=== PATIENT | male | born 1990 | race African-American/Black ===

== ENCOUNTER 2016-11-21 14:24 | Emergency (ER) | payer SELFPAY | END 2016-11-21 15:45 | disposition home or self-care (01) | LOC: D.ER 14:24 | DX: S93.402A Sprain of unspecified ligament of left ankle, initial encounter (principal); X58.XXXA Exposure to other specified factors, initial encounter; Y93.89 Activity, other specified; Y92.89 Other specified places as the place of occurrence of the external cause; J45.909 Unspecified asthma, uncomplicated; F17.200 Nicotine dependence, unspecified, uncomplicated ==

== ENCOUNTER 2019-12-13 20:36 | Inpatient (IN) | payer MEDICAID ==
[~2019-12-13] VITALS: Ht 185.4 cm; Wt 90.7 kg
--- NOTE | ~2019-12-13 | CN ---
PATIENT NAME:LEONARD PADILLA MEDICAL RECORD: [id number] : 89 LOCATION:[id number] ADMIT DATE: 12/14/19 ACCOUNT: [id number] CONSULTING PHYSICIAN: ENMANUEL MATHUR MD REFERRING PHYSICIAN: KD SALDIVAR MD DATE OF CONSULTATION: 12/16/2019 HISTORY OF PRESENT ILLNESS: Mr. Padilla is a 29-year-old male came in with a sore throat. On talking to him, he says his throat got sore 4 days ago and he has been in the hospital 2-3 days, so I came in immediately afterwards bad sore throat and it has not been getting better. Complains of difficulty swallowing. He has been on antibiotics, vancomycin and piperacillin I believe, but he did get a dose of steroids last night. His white count is 13,000. He is able to talk to me easily, he does not have any trismus, no distress. He is handling secretions well and seems okay to talk to, but he is just not getting a lot better and asked me to see him. On exam, he is healthy. He is alert. He is talkative, normal voice. No problem with his throat. Tongue protrudes in the midline. No trismus at all. Looking at his pharynx, he does have fullness in the right side. No peritonsillar cellulitis, but he does have fullness, it looks like he has got a tonsillitis, working on a right peritonsillar phlegmon, but not bad yet. Neck; he has got little jugulodigastric adenopathy on the right side, it is slightly tender, but his neck is not stiff or sore anything. His nose is normal. Eyes are normal. He did have a CT couple of days ago, I saw that and the report says some low density in the right tonsil region consistent with my exam. IMPRESSION: Tonsillitis with a right peritonsillar phlegmon. It is very early in his course. He started treatment pretty early. I think there is a good chance that this will calm down without intervention, but he is adamant that possibly developing a peritonsillar abscess timeframe, so I think he does need to be treated with steroids a little bit and he got a dose of last night, I am not sure if he got a dose of this morning, but just for about 24 hours a big dose of Decadron and I may just switch him to Rocephin and clindamycin. He is talking about potentially leaving AMA since he needs to go, but I told him that he may need an operation in a couple of days to drain the peritonsillar abscess if he does not improve. I think that there is a good chance with aggressive medical treatment he will improve, but he is not at that stage where he can go home yet, I do not think. I went over that with him, but with his white count, no trismus and looking at his pharynx, he does not have anything drainable at this point for sure. We will just have to see how he does over the next 24-48 hours. TRANSINT:[id number] Voice Confirmation ID: [id number] DOCUMENT ID: [id number] CONSULT REPORT [id number] LEONARD PADILLA ERIC MD CC: [id number] DICTATION DATE: 12/16/19 1253 MARKETING MANAGER: 12/16/19 1628 ADM IN [facility] [address] [place] [address]
--- NOTE | 2019-12-13 22:41 | NUR ---
RAPID STREP TO LAB.
[2019-12-13 23:50] LABS: HEMATOCRIT 41.4 % (42.0-54.0); HEMOGLOBIN 13.5 g/dL (13.5-17.5); LYMPHOCYTES 17.4 % (15-50); MCH 31.5 pg (26.0-34.0); MCHC 32.6 g/dL (31.0-37.0); MCV 96.5 fL (80.0-100.0); MEAN PLATELET VOLUME 8.8 fL (7.4-10.4); NEUTROPHILS 75.4 % (40-80); PLATELET COUNT 354 10x3/uL (130-400); RBC 4.29 10x6/uL (4.20-6.10); WBC 11.7 10x3/uL (4.8-10.8)
[2019-12-14 00:02] LABS: CALC OSMOLALITY 274 mosm/kg (275-300); CALCIUM 9.2 mg/dL (8.5-10.1); CARBON DIOXIDE 25.6 mmol/L (21.0-32.0); CHLORIDE - SERUM 104 mmol/L (98-107); CREATININE - SERUM 0.8 mg/dL (0.6-1.3); GLUCOSE 91 mg/dL (74-106); POTASSIUM - SERUM 3.7 mmol/L (3.5-5.1); SODIUM 138 mmol/L (136-145); UREA NITROGEN 11 mg/dL (7-18); eGFR NON AFRICAN AMERICAN > 90 mL/min (90-120)
[2019-12-14 00:07] LABS: ALBUMIN 3.6 g/dL (3.4-5.0); ALKALINE PHOSPHATASE 68 U/L (30-120); ALT (SGPT) 16 U/L (10-68); BILIRUBIN - TOTAL 0.95 mg/dL (0.2-1.3); PROTEIN - SERUM 8.4 g/dL (6.4-8.2)
--- NOTE | 2019-12-14 01:00 | NUR ---
BACK FROM CT. STATES THROAT IS STARTING TO HURT AGAIN.
--- NOTE | 2019-12-14 03:30 | NUR ---
A&O X 4, AMBULATES AD EDWIN. REPORTS PAIN/DIFFICULTLY SWALLOWING. NO NEEDS VOICED AT THIS TIME, CTM.
[2019-12-14 03:57] VITALS: BP 123/77; BMI 26.4
--- NOTE | 2019-12-14 04:06 | NUR ---
ADMISSION ASSESSMENT COMPLETE.
[2019-12-14 04:30] VITALS: BP 123/77
[2019-12-14 06:20] LABS: BASOPHILS 0.1 % (0-2); EOSINOPHILS 0.4 % (0-7); HEMATOCRIT 41.1 % (42.0-54.0); IMMATURE GRANULOCYTES 0.3 % (0-5); LYMPHOCYTES 8.9 % (15-50); MCH 30.9 pg (26.0-34.0); MCHC 31.6 g/dL (31.0-37.0); MCV 97.6 fL (80.0-100.0); MONOCYTES 1.2 % (2-11); NEUTROPHILS 89.1 % (40-80); PLATELET COUNT 338 10x3/uL (130-400); RBC 4.21 10x6/uL (4.20-6.10); RDW 12.9 % (11.5-14.5); WBC 12.9 10x3/uL (4.8-10.8)
[2019-12-14 07:10] LABS: ALBUMIN 3.4 g/dL (3.4-5.0); ALKALINE PHOSPHATASE 66 U/L (30-120); ALT (SGPT) 13 U/L (10-68); BILIRUBIN - TOTAL 0.83 mg/dL (0.2-1.3); CALC OSMOLALITY 274 mosm/kg (275-300); CALCIUM 8.7 mg/dL (8.5-10.1); CARBON DIOXIDE 25.7 mmol/L (21.0-32.0); CHLORIDE - SERUM 104 mmol/L (98-107); CREATININE - SERUM 0.9 mg/dL (0.6-1.3); GLUCOSE 108 mg/dL (74-106); POTASSIUM - SERUM 4.3 mmol/L (3.5-5.1); PROTEIN - SERUM 8.1 g/dL (6.4-8.2); SODIUM 137 mmol/L (136-145); UREA NITROGEN 12 mg/dL (7-18); eGFR NON AFRICAN AMERICAN > 90 mL/min (90-120)
[2019-12-14 08:44] VITALS: BP 135/73
[2019-12-14 13:30] VITALS: BP 145/75
[2019-12-14 14:02] VITALS: Ht 185.4 cm; Wt 90.7 kg
[2019-12-14 17:37] VITALS: BP 134/83
--- NOTE | 2019-12-14 19:00 | NUR ---
BEDSIDE REPORT RECEIVED AND CARE OF PT ASSUMED. PT LYING IN HIGH WEBER'S POSITION WATCHING TV. IV TO LEFT FA PATENT WITH NS INFUSING AT 125 ML/HR. WILL MONITOR FOR NEEDS.
[2019-12-14 20:00] VITALS: BP 125/65
--- NOTE | 2019-12-14 20:50 | NUR ---
HS MEDICATIONS GIVEN TO INCLUDE TYLENOL FOR PAIN. WILL CONTINUE TO MONITOR FOR NEEDS.
--- NOTE | 2019-12-14 23:17 | NUR ---
GAVE MORPHINE AND ZOFRAN IVP FOR C/O NAUSEA AND PAIN.
--- NOTE | 2019-12-14 23:30 | NUR ---
PT DRY HEAVING...GAVE COOL CLOTH FOR FACE.
[2019-12-15] VITALS: BP 133/60
--- NOTE | 2019-12-15 03:35 | NUR ---
PT GETTING NAUSEATED AFTER ANTIBIOTICS ARE INFUSED.
[2019-12-15 04:00] VITALS: BP 140/72
--- NOTE | 2019-12-15 04:10 | NUR ---
GAVE ZOFRAN 4 MG IVP FOR C/O NAUSEA. WILL MONITOR FOR EFFECTIVENESS.
--- NOTE | 2019-12-15 04:27 | NUR ---
PT WITH NAUSEA AND VOMITING NOW...AFTER RECEIVING ZOFRAN 4 MG IVP...MAYBE DUE TO ZOFRAN???
[2019-12-15 06:56] LABS: CALC OSMOLALITY 274 mosm/kg (275-300); CALCIUM 8.6 mg/dL (8.5-10.1); CHLORIDE - SERUM 105 mmol/L (98-107); GLUCOSE 96 mg/dL (74-106); SODIUM 138 mmol/L (136-145); UREA NITROGEN 11 mg/dL (7-18); eGFR NON AFRICAN AMERICAN > 90 mL/min (90-120)
[2019-12-15 06:58] LABS: POTASSIUM - SERUM 3.4 mmol/L (3.5-5.1)
[2019-12-15 07:16] LABS: BASOPHILS 0.1 % (0-2); EOSINOPHILS 0.3 % (0-7); HEMOGLOBIN 12.6 g/dL (13.5-17.5); IMMATURE GRANULOCYTES 0.4 % (0-5); LYMPHOCYTES 16.5 % (15-50); MCH 31.4 pg (26.0-34.0); MCHC 32.3 g/dL (31.0-37.0); MCV 97.3 fL (80.0-100.0); MEAN PLATELET VOLUME 9.2 fL (7.4-10.4); MONOCYTES 6.2 % (2-11); NEUTROPHILS 76.5 % (40-80); PLATELET COUNT 368 10x3/uL (130-400); RBC 4.01 10x6/uL (4.20-6.10); RDW 12.8 % (11.5-14.5); WBC 13.6 10x3/uL (4.8-10.8)
[2019-12-15 10:04] VITALS: BP 130/86
--- NOTE | 2019-12-15 12:13 | NUR ---
PATIENT STATED HE IS GOING FOR A WALK BECAUSE HE IS TIRED OF BEING IN HIS ROOM.
[2019-12-15 13:46] VITALS: BP 138/77
[2019-12-15 16:47] VITALS: BP 141/76
[2019-12-15 20:00] VITALS: BP 147/80
--- NOTE | 2019-12-15 20:00 | NUR ---
PT SITTING UP ON SIDE OF BED, AOX4. IV LEFT FA INFUSING NS @ 125. GAVE PT ORDERED ONE TIME DOSE OF ONC MOUTHWASH. PT STATES THROAT HURTS AND STILL HAVING DIFFICULTY SWALLOWING. PT TIRED OF BEING IN ROOM, GETTING UP TO WALK IN HALLS AT THIS TIME. DENIES OTHER NEEDS. CL IN REACH, WILL CTM
--- NOTE | 2019-12-15 21:30 | NUR ---
PT LEFT AC IV INFILTRATED. REMOVED WITH CATHETER INTACT. PT GOT UP TO SHOWER AT THIS TIME. TOOK HIBI CLENS SHOWER. LINENS CHANGED. STATES THROAT FEELS A LITTLE BETTER AFTER MOUTHWASH. AFTER SHOWER RESITED 20G IV TO RIGHT FA X1 ATTEMPT. DRINKING CRANBERRY JUICE AND EATING VANILLA ICE CREAM. DENIES OTHER NEEDS. CL IN REACH, WILL CTM
[2019-12-16] VITALS: BP 124/54
[2019-12-16 04:00] VITALS: BP 137/77
--- NOTE | 2019-12-16 04:11 | NUR ---
PT LYING IN BED SLEEPING WITHOUT DISTRESS, WILL CTM
[2019-12-16 07:01] LABS: BASOPHILS 0.2 % (0-2); EOSINOPHILS 0.1 % (0-7); HEMATOCRIT 36.9 % (42.0-54.0); HEMOGLOBIN 11.9 g/dL (13.5-17.5); IMMATURE GRANULOCYTES 0.5 % (0-5); LYMPHOCYTES 14.9 % (15-50); MCHC 32.2 g/dL (31.0-37.0); MCV 96.1 fL (80.0-100.0); MEAN PLATELET VOLUME 8.8 fL (7.4-10.4); MONOCYTES 6.3 % (2-11); PLATELET COUNT 330 10x3/uL (130-400); RBC 3.84 10x6/uL (4.20-6.10); RDW 12.8 % (11.5-14.5); WBC 13.3 10x3/uL (4.8-10.8)
[2019-12-16 08:01] LABS: CALC OSMOLALITY 270 mosm/kg (275-300); CALCIUM 8.2 mg/dL (8.5-10.1); CARBON DIOXIDE 26.8 mmol/L (21.0-32.0); CHLORIDE - SERUM 104 mmol/L (98-107); GLUCOSE 102 mg/dL (74-106); MAGNESIUM - SERUM 1.8 mg/dL (1.8-2.4); POTASSIUM - SERUM 3.8 mmol/L (3.5-5.1); SODIUM 136 mmol/L (136-145); UREA NITROGEN 9 mg/dL (7-18); eGFR NON AFRICAN AMERICAN > 90 mL/min (90-120)
--- NOTE | 2019-12-16 13:06 | NUR ---
PATIENT UPSET AT THIS TIME BC HE SAID THE DIDNT LISTEN TO HIM. HE SAID HE ONLY CAME IN LOOKED AT HIS THROAT AND LEFT. ALSO SAID HE DIDNT LET HIM TALK TO HIM ABOUT PAIN OR ANYTHING. SAID HE WANTED TO TALK TO COCONUT JELLY ROLLER ONCE HE IS BACK FROM AMBULATING. PHYSICIAN ORDERED NEW ANTIBIOTICS AND STERIODS. WILL START SOON PATIENT IS BACK TO ROOM.
--- NOTE | 2019-12-16 13:30 | NUR ---
Nutrition follow-up: Pt now assessed at nutritional risk R/T inablility to swallow AEB pt only eating full liquids at this time. Labs reviewed WT: 199# Recommend starting ProcalAmine PPN @ 125 ml/hr along with full liquids to meet est nutritional needs shor-term. RDN following.
[2019-12-16 13:46] VITALS: BP 150/94
[2019-12-16 18:10] VITALS: BP 106/55
[2019-12-16 20:00] VITALS: BP 119/74
--- NOTE | 2019-12-16 20:00 | NUR ---
PT SITTING UP IN BED WITHOUT DISTRESS, AOX4. IV LEFT FA INFUSING NS @ 125. STATES PAIN IN THROAT / AND THAT IT IS FEELING MUCH BETTER AFTER DECADRON WAS STARTED. PT DISCONNECTED FROM FLUIDS TO TAKE A SHOWER AT THIS TIME. DENIES NEEDS. CL IN REACH, WILL CTM
[2019-12-17] VITALS: BP 126/61
[2019-12-17 04:51] VITALS: BP 140/70
[2019-12-17 06:47] LABS: BASOPHILS 0 % (0-2); EOSINOPHILS 0 % (0-7); HEMATOCRIT 36.2 % (42.0-54.0); HEMOGLOBIN 11.9 g/dL (13.5-17.5); IMMATURE GRANULOCYTES 0.5 % (0-5); MCH 31.2 pg (26.0-34.0); MCHC 32.9 g/dL (31.0-37.0); MONOCYTES 2.8 % (2-11); NEUTROPHILS 84.7 % (40-80); PLATELET COUNT 361 10x3/uL (130-400); RBC 3.81 10x6/uL (4.20-6.10); RDW 12.7 % (11.5-14.5)
[2019-12-17 07:03] LABS: CALC OSMOLALITY 278 mosm/kg (275-300); CALCIUM 8.7 mg/dL (8.5-10.1); CARBON DIOXIDE 27.3 mmol/L (21.0-32.0); CHLORIDE - SERUM 104 mmol/L (98-107); CREATININE - SERUM 0.9 mg/dL (0.6-1.3); GLUCOSE 144 mg/dL (74-106); MAGNESIUM - SERUM 2.1 mg/dL (1.8-2.4); POTASSIUM - SERUM 3.6 mmol/L (3.5-5.1); SODIUM 138 mmol/L (136-145); eGFR NON AFRICAN AMERICAN > 90 mL/min (90-120)
[2019-12-17 07:04] LABS: UREA NITROGEN 12 mg/dL (7-18)
[2019-12-17 08:12] VITALS: BP 127/71
--- NOTE | 2019-12-17 10:00 | NUR ---
ASSESSMENT PER FLOW SHEET PATINET IS WITHOUT DISTRESS. ATE SCRAMBLED EGGS AND SAUSAGE FOR BREAKFAST. DENIES NEEDS.CALL LIGHT IN REACH
[2019-12-17 12:02] VITALS: BP 132/81
[2019-12-17] MEDS ORDERED: AUGMENTIN 875-11 TAB PO (15:12)
[2019-12-17] MEDS ORDERED: MEDROL DOSE PACK4 MG PO (15:13)
--- NOTE | 2019-12-17 15:31 | NUR ---
IV DCD WITH CATH TIP INTACT.
--- NOTE | 2019-12-17 15:54 | MORECARE ---
CASE MANAGEMENT DISCHARGE SUMMARY PATIENT: LEONARD PADILLA UNIT: [id number] ADM DATE: 12/14/19 AGE: 29 : [birth year] SEX: M ROOM/BED: D.2219 AUTHOR: SARAH ISSA PHYSICIAN: REFERRING PHYSICIAN: KD SALDIVAR MD DATE OF SERVICE: 12/17/19 Discharge Plan Patient Name: LEONARD PADILLA Facility: [facility]:[place] : 1990 Planned Disposition: Anticipated Discharge Date: Discharge Date: Expected LOS: Initial Reviewer: [email or web address] Initial Review Date: 12/17/2019 Generated: 12/17/19 4:53 pm Patient Name: LEONARD PADILLA Page [id number] at 1554 All edits/amendments must be made on the electronic document DICTATION DATE: 12/17/19 155 CABLE INSTALLATION MANAGER: CECI 12/17/19 155 RPT#: [id number] DC DATE: STATUS: ADM IN [facility] [address] [place] [address] END OF REPORT
--- NOTE | 2019-12-17 16:00 | MORECARE ---
CASE MANAGEMENT DISCHARGE SUMMARY PATIENT: LEONARD PADILLA UNIT: [id number] ADM DATE: 12/14/19 AGE: 29 : [birth year] SEX: M ROOM/BED: D.2219 AUTHOR: SARAH ISSA PHYSICIAN: REFERRING PHYSICIAN: KD SALDIVAR MD DATE OF SERVICE: 12/17/19 Discharge Plan Patient Name: LEONARD PADILLA Facility: [facility]:[place] : 1990 Planned Disposition: Anticipated Discharge Date: Discharge Date: Expected LOS: Initial Reviewer: [email or web address] Initial Review Date: 12/17/2019 Generated: 12/17/19 5:00 pm Comments DCP- Discharge Planning Updated by [email or web address]: Angelita Willoughby on 12/17/19 2:[address] Patient Name: LEONARD PADILLA Admission Status: ER Accout number: [id number] Admission Date: 12-14-2019 : 1990 Admission Diagnosis:ACUTE TONSILLITIS, UNSPECIFIED Attending: KD EISENBERG Current LOS: 3 Anticipated DC Date: Planned Disposition: Primary Insurance: MEDICAID [place] PENDING Discharge Planning Comments: CM met with patient at bedside after explaining CM role and obtaining verbal consent. CM discussed availability / needs of home health, REHAB and medical equipment. PATIENT DENIES ANY DISCHARGE NEEDS. GOOD RX CARD GIVEN. Charge Coordinator: Angelita Willoughby Last DP export: 12/17/19 2:54 p Patient Name: LEONARD PADILLA Page [id number] at 1600 All edits/amendments must be made on the electronic document DICTATION DATE: 12/17/19 1600 HOG MAN: CECI 12/17/19 1600 RPT#: [id number] DC DATE: STATUS: ADM IN [place] [address] [place] [address] END OF REPORT
--- NOTE | 2019-12-17 16:24 | NUR ---
DISCHARGE INSTRUCTIONS,STATES UNDERSTANDING.LEFT UNIT AMBULATORY. DECLINED WHEELCHAIR
--- NOTE | 2019-12-18 15:27 | MORECARE ---
CASE MANAGEMENT DISCHARGE SUMMARY PATIENT: LEONARD PADILLA UNIT: [id number] ADM DATE: 12/14/19 AGE: 29 : [birth year] SEX: M ROOM/BED: D.2219 AUTHOR: SARAH ISSA PHYSICIAN: REFERRING PHYSICIAN: KD SALDIVAR MD DATE OF SERVICE: 12/18/19 Discharge Plan Patient Name: LEONARD PADILLA Facility: [facility]:[place] : 1990 Planned Disposition: Anticipated Discharge Date: Discharge Date: 12/17/2019 Expected LOS: Initial Reviewer: [email or web address] Initial Review Date: 12/17/2019 Generated: 12/18/19 4:26 pm Comments DCP- Discharge Planning Updated by [email or web address]: Angelita Willoughby on 12/17/19 2:[address] Patient Name: LEONARD PADILLA Admission Status: ER Accout number: [id number] Admission Date: 12-14-2019 : 1990 Admission Diagnosis:ACUTE TONSILLITIS, UNSPECIFIED Attending: KD EISENBERG Current LOS: 3 Anticipated DC Date: Planned Disposition: Primary Insurance: MEDICAID [place] PENDING Discharge Planning Comments: CM met with patient at bedside after explaining CM role and obtaining verbal consent. CM discussed availability / needs of home health, REHAB and medical equipment. PATIENT DENIES ANY DISCHARGE NEEDS. GOOD RX CARD GIVEN. Business Unit Manager: Angelita Willoughby Last DP export: 12/17/19 3:00 p Patient Name: LEONARD PADILLA Page [id number] at 1527 All edits/amendments must be made on the electronic document DICTATION DATE: 12/18/19 1526 SEMICONDUCTOR WAFER INSPECTOR: CECI 12/18/19 1526 RPT#: [id number] DC DATE:12/17/19 STATUS: DIS IN [facility] [address] [place] [address] END OF REPORT
== END 2019-12-17 16:25 | disposition home or self-care (01) | DRG 153 ==
LOC: D.ER 20:36 → D.MS 12-14 03:02
PROVIDERS: Family Medicine; ADMIT Family Medicine Adult Medicine; ATTEND Family Medicine Adult Medicine
DX: J03.90 Acute tonsillitis, unspecified (principal); R13.12 Dysphagia, oropharyngeal phase; D64.9 Anemia, unspecified; D72.829 Elevated white blood cell count, unspecified